=== PATIENT | female | born 1985 | race Caucasian/White ===

== ENCOUNTER 2016-12-25 17:01 | Emergency (ER) | payer BC ==
[2016-12-25 18:04] LABS: Hematocrit 41 % (35-47); Hemoglobin 13.8 g/dl (12.0-16.0); Mean Corpuscular HGB Conc 33 g/dl (31-36); Mean Corpuscular Hemoglobin 28 pg (27-31); Mean Corpuscular Volume 82 fL (80-97); Mean Platelet Volume 8 um3 (7.4-10.4); Red Blood Count 5.01 10^6/ul (4.0-5.4); Red Cell Distribution Width 14 % (10.5-15); White Blood Count 13.3 10^3/ul (3.5-10.8)
[2016-12-25 18:16] LABS: Albumin 4.1 g/dL (3.2-5.2); BUN/Creatinine Ratio 21.5 (8-20); Calcium 9.2 mg/dL (8.6-10.3); EGFR African American 136.7 (>60); EGFR Non-African American 106.3 (>60); Globulin 3.2 g/dL (2-4); Potassium 3.9 mmol/L (3.5-5.0); Total Bilirubin 0.4 mg/dL (0.2-1.0); Total Protein 7.3 g/dL (6.4-8.9)
--- NOTE | 2016-12-25 19:07 | RAD ---
Indication: Chest pain. Single frontal view of the chest performed at 1810 hours was reviewed. Comparison is made with previous exam dated November 24, 2013. No mediastinal shift is noted. Heart is of normal size and configuration. Lung palma appear clear. IMPRESSION: NO ACTIVE CARDIOPULMONARY DISEASE IS NOTED.
[2016-12-25 22:26] VITALS: BP 122/64
--- NOTE | 2016-12-25 23:01 | ED ---
Georgiana Bailey Salem, scribed for Frederick Martinez MD on 12/25/16 at 1854 . HPI Chest Pain - HPI Summary HPI Summary: Patient is a 31 y/o female who presents with CP since 1730 today. She repots chest, jaw, and shoulder tightness, as well as nausea. She states she was running after a child (approximately 20ft distance) before onset. Pt reports that her chest still feels tight. 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 - History of Current Complaint Chief Complaint: EDChestPainROMI Time Seen by Provider: 12/25/16 17:34 Hx Obtained From: Patient Onset/Duration: Started Hours Ago, Still Present Timing: Constant Initial Severity: Moderate Current Severity: Moderate Pain Intensity: 6 Pain Scale Used: 0-10 Numeric Chest Pain Location: Diffuse Character: Tightness Aggravating Factor(s): Nothing Alleviating Factor(s): Nothing Associated Signs and Symptoms: Positive: Nausea, Other: - Jaw and shoulder tightness. - Allergy/Home Medications Allergies/Adverse Reactions: Allergies Allergy/AdvReac Type Severity Reaction Status Date / Time Escitalopram [From Lexapro] Allergy Diarrhea Verified 03/13/16 21:00 [place] Allergy Rash Verified 03/13/16 21:00 PMH/Surg Hx/FS Hx/Imm Hx Endocrine/Hematology History: Denies: Hx Diabetes, Hx Thyroid Disease Cardiovascular History: Denies: Hx Congestive Heart Failure, Hx Hypertension Respiratory History: Reports: Hx Asthma Denies: Hx Chronic Obstructive Pulmonary Disease (COPD) GI History: Denies: Hx Ulcer History: Denies: Hx Renal Disease Neurological History: Reports: Hx Migraine Infectious Disease History: No Infectious Disease History: Denies: Hx Hepatitis, Hx Human Immunodeficiency Virus (HIV), Traveled Outside the [place] in Last 30 Days - Family History Known Family History: Positive: Cardiac Disease, Hypertension, Diabetes - Social History Alcohol Use: None Hx Substance Use: No Substance Use Type: Reports: None Smoking Status (MU): Former Smoker Type: Cigarettes Amount Used/How Often: 1/2 PPD Review of Systems Negative: Fever Positive: Chest Pain Positive: Nausea Positive: Other - Chest, jaw, and shoulder tightness. All Other Systems Reviewed And Are Negative: Yes Physical Exam Triage Information Reviewed: Yes Vital Signs On Initial Exam: Initial Vitals Temp Pulse Resp BP Pulse Ox 98.0 F 70 18 144/110 99 12/25/16 17:16 12/25/16 17:16 12/25/16 17:16 12/25/16 17:16 12/25/16 17:16 Vital Signs Reviewed: Yes Appearance: Positive: Well-Appearing, No Pain Distress, Obese Skin: Positive: Warm, Skin Color Reflects Adequate Perfusion, Dry Head/Face: Positive: Normal Head/Face Inspection Eyes: Positive: Normal Neck: Positive: Supple, Nontender Respiratory/Lung Sounds: Positive: Clear to Auscultation, Breath Sounds Present Cardiovascular: Positive: RRR Abdomen Description: Positive: Nontender, Soft Bowel Sounds: Positive: Present Musculoskeletal: Positive: Normal Neurological: Positive: Normal Psychiatric: Positive: Normal, Affect/Mood Appropriate - [place] Coma Scale Coma Scale Total: 15 Diagnostics - Vital Signs Vital Signs Temp Pulse Resp BP Pulse Ox 12/25/16 18:30 49 15 134/80 96 12/25/16 18:03 98 12/25/16 18:00 75 19 96 12/25/16 17:35 77 22 97 12/25/16 17:34 138/83 12/25/16 17:29 97.9 F 77 18 138/83 98 12/25/16 17:16 98.0 F 70 18 144/110 99 - Laboratory Lab Results: Lab Results 12/25/16 12/25/16 12/25/16 Range/Units 17:35 17:35 17:35 WBC 13.3 H (3.5-10.8) 10^3/ul RBC 5.01 (4.0-5.4) 10^6/ul Hgb 13.8 (12.0-16.0) g/dl Hct 41 (35-47) % MCV 82 (80-97) fL MCH 28 (27-31) pg MCHC 33 (31-36) g/dl RDW 14 (10.5-15) % Plt Count 212 (150-450) 10^3/ul MPV 8 (7.4-10.4) um3 Neut % (Auto) 71.6 (38-83) % Lymph % (Auto) 21.2 L (25-47) % [place] % (Auto) 5.8 (1-9) % Eos % (Auto) 1.0 (0-6) % Baso % (Auto) 0.4 (0-2) % Absolute Neuts (auto) 9.5 H (1.5-7.7) 10^3/ul Absolute Lymphs (auto) 2.8 (1.0-4.8) 10^3/ul Absolute Monos (auto) 0.8 (0-0.8) 10^3/ul Absolute Eos (auto) 0.1 (0-0.6) 10^3/ul Absolute Basos (auto) 0.1 (0-0.2) 10^3/ul Absolute Nucleated RBC 0.01 10^3/ul Nucleated RBC % 0.1 D-Dimer, Quantitative < 200 (Less Than 230) ng/mL Sodium 135 (133-145) mmol/L Potassium 3.9 (3.5-5.0) mmol/L Chloride 104 (101-111) mmol/L Carbon Dioxide 23 (22-32) mmol/L Anion Gap 8 (2-11) mmol/L BUN 14 (6-24) mg/dL Creatinine 0.65 (0.51-0.95) mg/dL Est GFR ( Amer) 136.7 (>60) Est GFR (Non-Af Amer) 106.3 (>60) BUN/Creatinine Ratio 21.5 H (8-20) Glucose 95 (70-100) mg/dL Lactic Acid (0.5-2.0) mmol/L Calcium 9.2 (8.6-10.3) mg/dL Total Bilirubin 0.40 (0.2-1.0) mg/dL AST 15 (13-39) U/L ALT 15 (7-52) U/L Alkaline Phosphatase 56 (34-104) U/L Troponin I 0.00 (<0.04) ng/mL Total Protein 7.3 (6.4-8.9) g/dL Albumin 4.1 (3.2-5.2) g/dL Globulin 3.2 (2-4) g/dL Albumin/Globulin Ratio 1.3 (1-3) 12/25/16 Range/Units 17:35 WBC (3.5-10.8) 10^3/ul RBC (4.0-5.4) 10^6/ul Hgb (12.0-16.0) g/dl Hct (35-47) % MCV (80-97) fL MCH (27-31) pg MCHC (31-36) g/dl RDW (10.5-15) % Plt Count (150-450) 10^3/ul MPV (7.4-10.4) um3 Neut % (Auto) (38-83) % Lymph % (Auto) (25-47) % [place] % (Auto) (1-9) % Eos % (Auto) (0-6) % Baso % (Auto) (0-2) % Absolute Neuts (auto) (1.5-7.7) 10^3/ul Absolute Lymphs (auto) (1.0-4.8) 10^3/ul Absolute Monos (auto) (0-0.8) 10^3/ul Absolute Eos (auto) (0-0.6) 10^3/ul Absolute Basos (auto) (0-0.2) 10^3/ul Absolute Nucleated RBC 10^3/ul Nucleated RBC % D-Dimer, Quantitative (Less Than 230) ng/mL Sodium (133-145) mmol/L Potassium (3.5-5.0) mmol/L Chloride (101-111) mmol/L Carbon Dioxide (22-32) mmol/L Anion Gap (2-11) mmol/L BUN (6-24) mg/dL Creatinine (0.51-0.95) mg/dL Est GFR ( Amer) (>60) Est GFR (Non-Af Amer) (>60) BUN/Creatinine Ratio (8-20) Glucose (70-100) mg/dL Lactic Acid 1.5 (0.5-2.0) mmol/L Calcium (8.6-10.3) mg/dL Total Bilirubin (0.2-1.0) mg/dL AST (13-39) U/L ALT (7-52) U/L Alkaline Phosphatase (34-104) U/L Troponin I (<0.04) ng/mL Total Protein (6.4-8.9) g/dL Albumin (3.2-5.2) g/dL Globulin (2-4) g/dL Albumin/Globulin Ratio (1-3) Result Diagrams: 12/25/16 17:35 12/25/16 17:35 Lab Statement: Any lab studies that have been ordered have been reviewed, and results considered in the medical decision making process. - Radiology CXR Radiology Interpretation Completed By: Radiologist - IMPRESSION: NO ACTIVE CARDIOPULMONARY DISEASE IS NOTED. - EKG 1726 Cardiac Rate: NL - @ 79 bpm. EKG Interpretation: AV dissociation. 1909 Cardiac Rate: Bradycardia - @ 48 bpm. EKG Interpretation: Type 2 block. Re-Evaluation - Re-Evaluation First Eval Re-Evaluation Time: 22:21 Comment: Discussed plan with pt. Chest Pain Course/Dx - Course Course Of Treatment: Ms. Wooten had a short episode of chest pain anfter minimal exertion. Her W/U including two troponins was negative and her EDACS score was very low at 7. She had an unusual ecg and monitor stips showing at times what looked like Mobitz I, Mobitz II and A-V dissociation. She has had a number of ecg's over the last 10 years and several of them have shown the same thing however and it is not likely related or dangerous. - Diagnoses Provider Diagnoses: Chest pain - Provider Notifications Discussed Care Of Patient With: Dr. Costa (hospitalist) @ 1899. Dr. Gregg ( cardiology) @ 1937. Will call back. Dr. Gregg @ 1957. Discharge - Discharge Plan Condition: Stable Disposition: HOME Patient Education Materials: Chest Pain (ED) Referrals: Alejandrina Brown MD [Primary Care Provider] - Additional Instructions: Follow up with PCP. The documentation as recorded by the Georgiana cassidy Salem accurately reflects the service I personally performed and the decisions made by me, Frederick Martinez MD.
== END 2016-12-25 22:24 | disposition home or self-care (01) ==
LOC: ED 17:01
DX: R07.9 Chest pain, unspecified (principal); R11.0 Nausea; Z87.891 Personal history of nicotine dependence
CPT/HCPCS: 36415; 71010; 80053; 83605; 84484; 85025; 85379; 93005; 99282

== ENCOUNTER 2017-02-19 11:05 | Emergency (ER) | payer SELFPAY ==
[2017-02-19 11:16] VITALS: BP 120/71
--- NOTE | 2017-02-19 11:32 | UC ---
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 Onset Severity: Mild Current Severity: Mild Pain Intensity: 3 Pain Scale Used: 0-10 Numeric Location: Discrete Character: Pain Aggravating: Nothing Alleviating: Nothing Associated Signs & Symptoms: Positive: Negative - Allergy/Home Medications Allergies/Adverse Reactions: Allergies Allergy/AdvReac Type Severity Reaction Status Date / Time Escitalopram [From Lexapro] Allergy Diarrhea Verified 03/13/16 21:00 [place] Allergy Rash Verified 03/13/16 21:00 Review of Systems Constitutional: Negative Skin: Bruising - left upper arm Eyes: Negative ENT: Negative Respiratory: Negative Cardiovascular: Negative Gastrointestinal: Negative Genitourinary: Negative Motor: Negative Neurovascular: Negative Musculoskeletal: Negative Neurological: Negative Psychological: Negative All Other Systems Reviewed And Are Negative: Yes PMH/Surg Hx/FS Hx/Imm Hx Previously Healthy: Yes - Surgical History Surgical History: None - Family History Known Family History: Positive: None, Cardiac Disease, Hypertension, Diabetes - Social History Occupation: Employed Full-time Lives: With Family Alcohol Use: None Substance Use Type: None Smoking Status (MU): Former Smoker Type: Cigarettes Amount Used/How Often: 1/2 PPD Household Exposure Type: Cigarettes - Immunization History Most Recent Influenza Vaccination: 06/27 Most Recent Tetanus Shot: unknown Physical Exam Triage Information Reviewed: Yes Appearance: Well-Appearing, No Pain Distress, Well-Nourished Vital Signs: Initial Vital Signs Temp 98.3 F 02/19/17 11:14 Pulse 75 02/19/17 11:14 Resp 18 02/19/17 11:14 BP 120/71 02/19/17 11:14 Pulse Ox 99 02/19/17 11:14 Eye Exam: Normal Eyes: Positive: Conjunctiva Clear ENT Exam: Normal ENT: Positive: Normal ENT inspection, Hearing grossly normal. Negative: Nasal congestion, Nasal drainage, Trismus, Muffled/hoarse voice Dental Exam: Normal Neck exam: Normal Neck: Positive: Supple, Nontender Respiratory Exam: Normal Respiratory: Positive: Chest non-tender, No respiratory distress, No accessory muscle use Cardiovascular Exam: Normal Cardiovascular: Positive: RRR, Pulses Normal, Brisk Capillary Refill Musculoskeletal Exam: Normal Musculoskeletal: Positive: Strength Intact, ROM Intact, No Edema Neurological Exam: Normal Neurological: Positive: Alert, Muscle Tone Normal Psychological Exam: Normal Skin Exam: Normal Re-Evaluation - Re-Evaluation First Eval Change: Unchanged - education regarding hiv, hep b and C post exposure treatment plan Course/Dx - Course Course Of Treatment: up date Tetanus, lab studiesfollow with employee health, pcp - Differential Diagnoses - Skin Complaint Differential Diagnoses: Cellulitis, Impetigo, Other - bite/bruising - Diagnoses Provider Diagnoses: potential body fluid exposure Discharge - Discharge Plan Condition: Stable Disposition: HOME Patient Education Materials: Diphtheria/Acellular Pertussis/Tetanus Booster Vaccine (By injection), Body Substance Exposure (ED) Referrals: Alejandrina Brown MD [Primary Care Provider] - (follow up per your occupational exposure plan)
[2017-02-19] MEDS ORDERED: Tetan/Diph/Pertus SYR(Tdap)* 0.5 ML SYR(BOOSTRIX) use SYR IM ONE (11:34)
== END 2017-02-19 11:54 | disposition home or self-care (01) ==
LOC: UCEAST 11:05
DX: Z77.21 Contact with and (suspected) exposure to potentially hazardous body fluids (principal); Y08.89XA Assault by other specified means, initial encounter; Y93.89 Activity, other specified; Y92.89 Other specified places as the place of occurrence of the external cause; Y99.0 Civilian activity done for income or pay; Z87.891 Personal history of nicotine dependence
CPT/HCPCS: 36415; 86706; 86803; 90715; 96372; 99211; G0463

== ENCOUNTER 2017-10-07 15:16 | Emergency (ER) | payer BC ==
[2017-10-07 15:44] VITALS: BP 0/0
== END 2017-10-07 15:43 | disposition left against medical advice (07) ==
LOC: ED 15:16
DX: R06.02 Shortness of breath (principal); Z53.21 Procedure and treatment not carried out due to patient leaving prior to being seen by health care provider

== ENCOUNTER 2018-06-19 12:51 | Emergency (ER) | payer BC ==
[2018-06-19] MEDS ORDERED: methylPREDNISolone 125 MG* 2 ML VIAL IM ONE (12:56)
[2018-06-19] MEDS ORDERED: Ondansetron ODT TAB* 4 MG PO ONE (12:56)
[2018-06-19] MEDS ORDERED: Famotidine TAB* 20 MG PO ONE (12:56)
[2018-06-19] MEDS ORDERED: LoraTADine TAB(NF) 10 MG TAB (AUTOSUB to CETIRIZINE) PO ONE (12:57)
--- NOTE | 2018-06-19 12:58 | UC ---
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 Patient reports diffuse itching and some nausea but no respiratory difficulty. Vomited one time. No tongue or lip swelling. No rash. - History of Current Complaint Stated Complaint: ALLERGIC REACTION Time Seen by Provider: 06/19/18 12:53 Hx Obtained From: Patient Hx Last Menstrual Period: current Onset/Duration: Sudden Onset, Lasting Minutes, Still Present Severity Initially: Moderate Severity Currently: Moderate Pain Intensity: 0 Pain Scale Used: 0-10 Numeric Location: Diffuse Aggravating Factor(s): Nothing Alleviating Factor(s): Nothing Associated Signs And Symptoms: Positive: Nausea, Vomiting. Negative: Abdominal Pain, Chest Pain, Cough Wheezing, Diaphoresis, Difficulty Breathing, Hoarseness , Lightheadedness, Syncope, Throat Tightening - Allergies/Home Medications Allergies/Adverse Reactions: Allergies Allergy/AdvReac Type Severity Reaction Status Date / Time escitalopram [From Lexapro] Allergy GI Upset Verified 06/19/18 12:59 [place] Allergy Rash And Verified 06/19/18 12:59 Itching Home Medications: Home Medications Loratadine [Claritin 10 MG CAP] 1 tab PO DAILY 06/19/18 [History Confirmed 06/19] PMH/Surg Hx/FS Hx/Imm Hx Psychological History: Anxiety - Surgical History Surgical History: None - Family History Known Family History: Positive: Cardiac Disease, Hypertension, Diabetes - Social History Alcohol Use: None Substance Use Type: None Smoking Status (MU): Former Smoker Type: Cigarettes Amount Used/How Often: 1/2 PPD Household Exposure Type: Cigarettes - Immunization History Most Recent Influenza Vaccination: 06/27 Most Recent Tetanus Shot: unknown Review of Systems Constitutional: Negative, Other - FEELS ITCHY ENT: Negative Respiratory: Negative Cardiovascular: Negative Gastrointestinal: Vomiting, Nausea Genitourinary: Negative All Other Systems Reviewed And Are Negative: Yes Physical Exam Triage Information Reviewed: Yes Appearance: Well-Appearing, No Pain Distress, Well-Nourished Vital Signs Reviewed: Yes Eyes: Positive: Conjunctiva Clear ENT: Positive: Hearing grossly normal, Pharynx normal, TMs normal Neck: Positive: Supple, Nontender, No Lymphadenopathy Respiratory Exam: Normal Cardiovascular Exam: Normal Abdomen Description: Positive: Soft Musculoskeletal: Positive: No Edema Neurological: Positive: Alert Psychological: Positive: Age Appropriate Behavior Skin: Negative: rashes Re-Evaluation - Re-Evaluation First Eval Re-Evaluation Time: 13:40 - NAUSEA IMPROVED, STILL ITCHY Change: Improved Second Eval Re-Evaluation Time: 14:40 - ITCHING BETTER. READY FOR D/C Change: Improved Allergic Reaction Course/Dx - Differential Dx/Diagnosis Provider Diagnoses: ALLERGIC REACTION Discharge - Sign-Out/Discharge Documenting (check all that apply): Patient Departure All imaging exams completed and their final reports reviewed: No Studies - Discharge Plan Condition: Stable Disposition: HOME Prescriptions: predniSONE TAB* [Deltasone TAB*] 50 mg PO DAILY #4 tab Patient Education Materials: General Allergic Reaction (ED) Referrals: Alejandrina Brown MD [Primary Care Provider] - If Needed Additional Instructions: YOU HAD IMPROVEMENT OF YOUR SYMPTOMS AFTER 125 MG SOLU-MEDROL, 40 MG PEPCID AND 4 MG OF ZOFRAN. CONTINUE STEROIDS FOR 4 MORE DAYS USE DAILY HYPOALLERGENIC MOISTURIZING LOTION AVOID HEAT AND HOT WATER TAKE OTC ANTIHISTAMINE DAILY (CLARITIN (LORATADINE), ZYRTEC (CETIRIZINE) OR LUANA (FEXOFENADINE) IN THE MORNING, 25-50MG BENADRYL AT NIGHT) KEEP COOL, CLEAN AND DRY GO TO THE ED WITHOUT FAIL IF YOU DEVELOP ANY RESPIRATORY INVOLVEMENT, TONGUE/ LIP SWELLING, FEVER, NAUSEA/VOMITING OR ANY OTHER CONCERNING SYMPTOMS. - Billing Disposition and Condition Condition: STABLE Disposition: Home
[2018-06-19 13:36] VITALS: BP 153/73
== END 2018-06-19 14:45 | disposition home or self-care (01) ==
LOC: UCEAST 12:51
DX: T78.1XXA Other adverse food reactions, not elsewhere classified, initial encounter (principal); L29.9 Pruritus, unspecified; A88.8 Other specified viral infections of central nervous system; Z87.891 Personal history of nicotine dependence
CPT/HCPCS: 96372; 99212; A9270-GY; G0463; J2930

== ENCOUNTER 2018-10-20 13:32 | Emergency (ER) | payer BC ==
--- NOTE | 2018-10-20 15:33 | UC ---
Complaint Female HPI - HPI Summary HPI Summary: 33-year-old female presents with 4 day history of lower abdominal cramping and vaginal bleeding. States she had Mirena IUD placed January of last year for abnormal uterine bleeding. States bleeding finally stopped in March 2018 and she has not had a period since that time. She does report some urinary frequency. Denies fever, chills, nausea, vomiting, diarrhea, dyspareunia, vaginal discharge , dysuria, or urgency. - History Of Current Complaint Chief Complaint: UCGU Stated Complaint: PERSONAL Time Seen by Provider: 10/20/18 15:20 Hx Obtained From: Patient Hx Last Menstrual Period: no period - mirena IUD. Pain Intensity: 6 - Allergies/Home Medications Allergies/Adverse Reactions: Allergies Allergy/AdvReac Type Severity Reaction Status Date / Time escitalopram [From Lexapro] Allergy GI Upset Verified 10/20/18 14:00 [place] Allergy Rash And Verified 10/20/18 14:00 Itching PMH/Surg Hx/FS Hx/Imm Hx Neurological History: Migraine - Surgical History Surgical History: None - Family History Known Family History: Positive: Cardiac Disease, Hypertension, Diabetes - Social History Occupation: Employed Full-time Lives: With Family Alcohol Use: None Substance Use Type: None Smoking Status (MU): Former Smoker Type: Cigarettes Amount Used/How Often: 1/2 PPD Household Exposure Type: Cigarettes - Immunization History Most Recent Influenza Vaccination: 06/27 Most Recent Tetanus Shot: unknown Review of Systems All Other Systems Reviewed And Are Negative: Yes Constitutional: Negative: Fever, Chills Skin: Positive: Negative ENT: Positive: Negative Respiratory: Positive: Negative Cardiovascular: Positive: Negative Gastrointestinal: Positive: Abdominal Pain. Negative: Vomiting, Diarrhea, Nausea Genitourinary: Positive: Abnormal Bleeding. Negative: Dysuria, Hematuria, Frequency, Urgency, Vaginal/Penile Discharge Musculoskeletal: Positive: Negative Neurological: Positive: Negative Is Patient Immunocompromised?: No Physical Exam - Summary Physical Exam Summary: GENERAL APPEARANCE: Well developed, well nourished, alert and cooperative, and appears to be in no acute distress. CARDIAC: Normal S1 and S2. No S3, S4 or murmurs. Rhythm is regular. There is no peripheral edema, cyanosis or pallor. Extremities are warm and well perfused. Capillary refill is less than 2 seconds. LUNGS: Clear to auscultation without rales, rhonchi, wheezing or diminished breath sounds. ABDOMEN: Positive bowel sounds. Soft, nondistended. Mild generalized abdominal tenderness. No guarding or rebound. No masses or hepatosplenomegally. No CVA tenderness. MUSKULOSKELETAL: ROM intact to all extremities. No joint erythema or tenderness. Normal muscular development. Normal gait. SKIN: Skin normal color, texture and turgor with no lesions or eruptions. Triage Information Reviewed: Yes Vital Signs: Initial Vital Signs Temp 97.6 F 10/20/18 14:01 Pulse 58 10/20/18 14:01 Resp 20 10/20/18 14:01 BP 184/85 10/20/18 14:01 Pulse Ox 99 10/20/18 14:01 Vital Signs Reviewed: Yes Diagnostics - Radiology No standard instances Radiology Interpretation Completed By: Radiologist Summary of Radiographic Findings: Patient Name: GAYLA HINOJOSA Medical Record# : [id number]. Ordering Physician: Tre Boo NP Acct.#: [id number]. : 1985 Age: 33 Sex: F Location: [facility]. Exam Date: 10/20/181523 ADM Status: REG ER. Order Information: US TRANSVAGINAL. Accession Number: [id number]. CPT: 41557. Indication: Abdominal cramping. Real-time sonography of the pelvis was performed utilizing endovaginal technique. The uterus measures 7.7 x 4.1 x 4.9 cm. The IUD appears to BE low lying within the uterus. Endometrial echo measures 0.6 cm. The right ovary measures 3.6 x 2.4 x 2.3 cm and the left ovary measures 2.7 x 2.1 x 2.5 cm. IMPRESSION: IUD appears to be low within the uterus. Complaint Female Dx - Course Course Of Treatment: 33-year-old female presents with 4 day history of lower abdominal cramping and vaginal bleeding. States she had Mirena IUD placed January of last year for abnormal uterine bleeding. States bleeding finally stopped in March 2018 and she has not had a period since that time. She does report some urinary frequency. Denies fever, chills, nausea, vomiting, diarrhea, dyspareunia , vaginal discharge, dysuria, or urgency. Afebrile. Hypertensive but vitals otherwise stable. Exam reveals an alert adult female in no acute distress with some mild generalized abdominal tenderness without guarding or rebound. POC UA showed 2+ blood otherwise normal. Urine was negative. A transvaginal ultrasound was performed shows IUD to be low lying within the uterus. With the negative US the patient has elected to defer pelvic at this time. I suspect that patient's cramping and vaginal bleeding is related to her menstrual cycle and her history of abnormal uterine bleeding however I did discuss with the patient that I cannot rule out the possibility of other causes such as appendicitis or gallbladder disease although I have a low suspicion for these. She is to follow-up with her primary care provider in 3 days. Anticipatory guidance and warning symptoms requiring immediate evaluation the emergency room were reviewed with the patient. She verbalizes understanding and agrees care. - Differential Dx/Diagnosis Differential Diagnosis/HQI/PQRI: Ectopic, Pelvic Inflammatory Disease, , Sexually Transmitted Disease Provider Diagnosis: Abdominal cramping, Vaginal bleeding Discharge - Sign-Out/Discharge Documenting (check all that apply): Patient Departure All imaging exams completed and their final reports reviewed: Yes - Discharge Plan Condition: Stable Disposition: HOME Patient Education Materials: Acute Abdominal Pain (ED) Referrals: Alejandrina Brown MD [Primary Care Provider] - Additional Instructions: The ultrasound performed in the clinic today showed your IUD to be low lying within the uterus. Your urine test was negative. The urinalysis showed some blood which is to be expected with your vaginal bleeding but did not show evidence of an infection. I suspect that the cramping and bleeding is associated with your menstrual cycle however I cannot fully rule out other causes of abdominal pain at this time. Take ibuprofen 600 mg every 8 hours as needed for pain. Follow up with your primary care provider in 3 days for recheck of symptoms. Your blood pressure was also noted to be elevated in the clinic today. This should be rechecked by your primary care provider when you follow up. Seek immediate medical attention in the emergency room if you develop fever greater than 100.5 F, have worsening abdominal pain, persistent vomiting, you become weak or dizzy, or have any worsening of symptoms. - Billing Disposition and Condition Condition: STABLE Disposition: Home
[2018-10-20 16:40] VITALS: BP 187/57
== END 2018-10-20 16:41 | disposition home or self-care (01) ==
LOC: UCEAST 13:32
DX: N93.9 Abnormal uterine and vaginal bleeding, unspecified (principal); R10.30 Lower abdominal pain, unspecified; Z88.8 Allergy status to other drugs, medicaments and biological substances; Z91.018 Allergy to other foods; Z87.891 Personal history of nicotine dependence; Z97.5 Presence of (intrauterine) contraceptive device
CPT/HCPCS: 76830; 81003; 84702; 99211; G0463